=== PATIENT | male | born 1955 | race Two or more races ===

== ENCOUNTER 2019-03-31 05:37 | Day surgery (SDC) | payer OTHER ==
[2019-03-31] MEDS ORDERED: PERCOCET 5-3251 EACH PO (12:53)
== END 2019-03-31 13:50 | disposition home or self-care (01) ==
LOC: CIR.AMB 05:37
DX: M23.322 Other meniscus derangements, posterior horn of medial meniscus, left knee (principal); M23.352 Other meniscus derangements, posterior horn of lateral meniscus, left knee; M94.262 Chondromalacia, left knee; M65.862 Other synovitis and tenosynovitis, left lower leg; M13.862 Other specified arthritis, left knee